=== PATIENT | female | born 1990 | race American Indian/Alaskan Native ===

== ENCOUNTER 2018-03-09 09:34 | Inpatient (IN) | payer MEDICAID ==
--- NOTE | 2018-03-08 17:07 | History and Physical Report ---
History of Present Illness Date of examination: 03/09/18 Chief complaint: Scheduled section History of present illness: Pt is a 27 year old -[place] female DAVID 03/12/18 by 39w4d who presents for scheduled section secondary to breech presentation. She reports irregular contractions and denies vaginal bleeding and leakage of fluid. She has had care at [facility] since 23 wks complicated by late entry to care, chronic hepatitis B carrier, genital herpes without lesion or prodrome, and GBS positive status. Past History Past Medical History: no pertinent history Past Surgical History: no surgical history CAD DRAFTER History: hepatitis C, herpes Family/Genetic History: diabetes, hypertension Social history: no significant social history - Obstetrical History Expected Date of Delivery: 03/12/18 Actual Gestation: 39 Week(s) 3 Day(s) : 3 Para: 2 Hx # Term Pregnancies: 2 Number of Pregnancies: 0 Spontaneous Abortions: 0 Induced : 0 Number of Living Children: 2 Review of Systems All systems: negative - Physical Exam Breasts: Positive: deferred Cardiovascular: Regular rate Lungs: Positive: Clear to auscultation Abdomen: Positive: soft (GRAVID ) Uterus: Positive: enlarged (GRAVID ) Extremities: Positive: normal - Obstetrical FHR: auscultation normal Uterine Contraction Monitor Mode: External Uterine Contraction Pattern: Irregular Uterine Tone Measurement Phase: Resting Results All other labs normal. Assessment and Plan A: IUP at 39w4d Malpresentation of fetus Genital Herpes Chronic Hepatitis B Carrier GBS Positive P: Admit to labor and delivery Confirmatory Ultrasound Proceed with low transverse section
[2018-03-09] MEDS ORDERED: REGLAN IV NR (10:00)
[2018-03-09] MEDS ORDERED: PEPCID IV NR (10:00)
[2018-03-09] MEDS ORDERED: PITOCin/NS 20 UNIT/1000ML DRIP 20 UNITS/1,000 ML BAG IV SCH ×2 (10:00→21:34)
[2018-03-09] MEDS ORDERED: BICITRA PO NR (10:00)
[2018-03-09] MEDS: LACTATED RINGERS 1,000 ML IV SCH ×3 (10:20→12:53)
[2018-03-09 10:43] LABS: Basophils % (Auto) 0.4 % (0.0-1.8); Eosinophils # (Auto) 0.1 K/mm3 (0.0-0.4); Eosinophils % (Auto) 1.4 % (0.0-4.3); Hematocrit 34.4 % (30.3-42.9); Hemoglobin 11.6 gm/dl (10.1-14.3); Lymphocytes # (Auto) 1.4 K/mm3 (1.2-5.4); Lymphocytes % (Auto) 19.6 % (13.4-35.0); Mean Corpuscular HGB Conc 34 % (30-34); Mean Corpuscular Hemoglobin 30 pg (28-32); Mean Corpuscular Volume 88 fl (79-97); Monocytes # (Auto) 0.6 K/mm3 (0.0-0.8); Monocytes % (Auto) 7.8 % (0.0-7.3); Platelet Count 189 K/mm3 (140-440); Red Blood Count 3.91 M/mm3 (3.65-5.03); Red Cell Distribution Width 15.3 % (13.2-15.2)
[2018-03-09] MEDS ORDERED: ZOFRAN ONE (10:46)
[2018-03-09] MEDS ORDERED: ASTRAMORPH PF 10MG/10ML ONE ×2 (10:49→17:31)
[2018-03-09] MEDS ORDERED: SUBLIMAZE ONE (10:49)
[2018-03-09] MEDS ORDERED: ZOFRAN IV PRN ×2 (11:01→21:24)
[2018-03-09] MEDS ORDERED: NARCAN 0.4 MG/1 ML IV PRN ×2 (11:01→21:24)
[2018-03-09] MEDS ORDERED: BENADRYL IV PRN (11:01)
[2018-03-09] MEDS ORDERED: NUBAIN IV PRN (11:01)
[2018-03-09] MEDS ORDERED: DILAUDID IV PRN (11:01)
--- NOTE | 2018-03-09 11:07 | Anesthesia Consultation ---
Anesthesia Consult and Med Hx Date of service: 03/09/18 - Airway Anesthetic Teeth Evaluation: Good ROM Head & Neck: Adequate Mental/Hyoid Distance: Adequate Mallampati Class: Class II Intubation Access Assessment: Good - Pre-Operative Health Status ASA Pre-Surgery Classification: ASA2 Proposed Anesthetic Plan: Epidural, Spinal - Pre-Anesthesia Comment Pre-Anesthesia Comments: 27yo femal, hx hep b carrier, herpes, no active lesion - Pulmonary Hx Smoking: No - Cardiovascular System Hx Hypertension: No - Central Nervous System Hx Neuromuscular Disorder: No - Gastrointestinal Hx Ulcer: No - Endocrine Hx Renal Disease: No - Hematic Hx Anemia: No - Other Systems Hx Alcohol Use: No
[2018-03-09] MEDS ORDERED: ANCEF/STERILE WATER 2 GM/20 ML IV NR (12:00)
[2018-03-09] MEDS ORDERED: SODIUM CHLORIDE FLUSH SYRINGE 10 ML IV NR (12:00)
--- NOTE | 2018-03-09 14:43 | Ultrasound Report ---
LIMITED OB ULTRASOUND: Presentation. Gestation: [place] Position: Breech Heart Rate: 138 BPM Estimated gestational age is 39 weeks 4 days.
[2018-03-09] MEDS ORDERED: NACL 0.9% IR ONE (16:20)
[2018-03-09] MEDS ORDERED: WATER FOR IRRIG STERILE IR ONE (16:20)
[2018-03-09] MEDS ORDERED: NEO SYNEPHRINE/NS Syringe(OR USE) IV ONE (16:39)
--- NOTE | 2018-03-09 17:23 | Procedure Note ---
OB Delivery Note - Delivery Date of Delivery: 03/09/18 Surgeon: ELI RENTERIA Estimated blood loss: other (700 mL) - Section Preop diagnosis: breech Postop diagnosis: same section procedure: section, primary low transverse Disposition: PACU Complications: none Narrative: Please see operative report. - A at 1 minute: 8 at 5 minutes: 9 Gender: Female (3375g (7lb 7oz) @ 1642 pm)
--- NOTE | 2018-03-09 17:28 | Operative Report ---
Operative Report Operative Report: Date of procedure: March 09, 2018 Preoperative diagnosis: 1) IUP at 39w4d 2) Malpresentation- Breech Postoperative diagnosis: Same 3) Terminal meconium Procedure:Primary low transverse section Surgeon: Kelly Rain M.D. Anesthesia: Spinal-epidural Findings: 1) Viable female , Apgars 8 and 9, weight 3375 g, (7 lb 7 oz) in incomplete breech presentation 2) Normal-appearing uterus ovaries and tubes Estimated blood loss: 700 mL IV fluids:1000 mL Urine output:250 mL, clear at the end of the procedure Drains: [place] to gravity Specimens: None Complications: None. Counts correct x 3 Disposition: Stable to PACU Indication for procedure: Pt is a 27 year old at 39w4d who presents for primary cesareans secondary to breech presentation. Operation in detail: After the risks, benefits, alternatives and complications were explained to the patient she gave informed consent for the procedure. She was subsequently taken to the operating room where spinal-epidural anesthesia was noted to be adequate. She was subsequently placed in the dorsal supine position with leftward tilt and prepped and draped in a normal sterile fashion. heart tones were noted to be in the 150s prior to incision. A timeout was performed. A Pfannenstiel skin incision was made with the knife and carried down to the layer of the fascia with the Bovie. The fascia was incised in the midline and the fascial incision was extended bilaterally with the Bovie. Attention was then turned to the superior aspect of the incision which was grasped with two Kochers, tented up, and dissected off the rectus muscles. Attention was then turned to the inferior aspect of the incision which was grasped with two Kochers , tented up and dissected off the rectus muscles. The rectus muscles were then in the midline. The peritoneum was then entered bluntly. The peritoneal incision was extended with good visualization of the bladder. The peritoneal incision was then stretched. An Ming self-retaining retractor was placed for visualization. The bladder blade was placed. The vesicouterine peritoneum was grasped with smooth pickups and incised with Metzenbaum scissors. Metzenbaum scissors were used to extend the incision bilaterally. The bladder flap was then created digitally and the bladder blade was replaced. A transverse incision was made in the lower uterine segment with a knife and extended bilaterally with the bandage scissors. The buttocks were covered with a moist towel and were delivered, followed by each of the legs , torsoe, arms and finally head. Terminal meconium. was bulb suctioned at delivery. The cord was clamped and cut and the was handed to NICU staff in attendance. Cord blood was collected. The placenta was then delivered manually. The uterus was then exteriorized and cleared of all clots and debris. The hysterotomy was then reapproximated with 0 Vicryl in a running locked fashion. A second layer of the same suture was used in imbricating fashion. The hysterotomy was inspected and hemostasis was noted. The Ming self-retaining retractor was removed. The gutters were irrigated and cleared of all clots and debris. The hysterotomy was again inspected and noted to be hemostatic. Surgicel was placed over the hysterotomy. The peritoneum was reapproximated with 2-0 Vicryl in a running fashion incorporating the rectus muscles. The fascia was reapproximated with 0 Vicryl in a running fashion. The subcutaneous tissue was reapproximated with 3-0 Vicryl in a running fashion. The skin was reapproximated with 4-0 Vicryl in a subcuticular fashion. The incision was then covered with steri strips and a pressure dressing. The procedure was then ended. The patient tolerated the procedure well and was taken to the PACU in stable condition. All instrument, lap, and needle counts were correct 3.
[2018-03-09] MEDS ORDERED: SODIUM CHLORIDE FLUSH SYRINGE 10 ML IV SCH (21:24)
[2018-03-09] MEDS ORDERED: TUCKS PAD TP PRN (21:24)
[2018-03-09] MEDS ORDERED: D5LR 1,000 ML IV SCH (21:24)
[2018-03-09] MEDS ORDERED: LANSINOH TP PRN (21:24)
[2018-03-09] MEDS ORDERED: MYLICON PO PRN (21:24)
[2018-03-09] MEDS ORDERED: PERCOCET 5/325 PO PRN (21:24)
[2018-03-09] MEDS ORDERED: TYLENOL PO PRN (21:24)
[2018-03-09] MEDS ORDERED: MOTRIN PO PRN (21:24)
[2018-03-09] MEDS ORDERED: TORADOL IV PRN (21:35)
[2018-03-10] MEDS: ANCEF/NS 1 GM/50 ML 1 GM/50 ML BAG IV SCH ×2 (00:08→07:54)
[2018-03-10] MEDS: MILK OF MAGNESIA PO SCH ×4 (00:08→21:40)
[2018-03-10 05:53] LABS: Hemoglobin 11.1 gm/dl (10.1-14.3)
[2018-03-10] MEDS ORDERED: BOOSTRIX IM ONE (06:00)
[2018-03-10] MEDS ORDERED: FEOSOL PO SCH (10:00)
[2018-03-10] MEDS ORDERED: M-M-R II VACCINE SUB-Q ONE (17:31)
[2018-03-11] MEDS: MILK OF MAGNESIA PO SCH (05:34)
--- NOTE | 2018-03-11 09:39 | Progress Note ---
Assessment and Plan Patient is POD 2 s/p ltcs. Patient doing well. Would like to be discharged today. Subjective - Subjective Date of service: 03/11/18 Interval history: Patient has no complaints Patient reports: appetite normal, voiding normally, ambulating normally [place]: doing well Objective - Vital Signs Latest vital signs: Vital Signs Temp Pulse Resp BP BP Pulse Ox 03/11/18 09:18 97.9 F 89 18 115/68 03/11/18 08:37 88 100 03/11/18 06:20 18 03/11/18 05:45 18 03/10/18 17:16 98.4 F 96 H 20 109/63 99 03/10/18 15:39 98.1 F 91 H 20 117/63 100 03/10/18 11:58 98.9 F 83 18 123/78 100 Intake and Output 03/10/18 03/11/18 03/11/18 22:59 06:59 14:59 Intake Total 720 360 Output Total 800 Balance -80 360 Intake: Oral 480 Intake, Free Water 240 360 Output: Urine 800 Void 800 Other: Total, Intake Amount 240 Total, Output Amount 800 # Voids Void 1 1 # Bowel Movements 0 - Exam Breasts: Present: deferred Cardiovascular: Present: Regular rate, Normal S1, Normal S2 Lungs: Present: Clear to auscultation, Normal air movement Abdomen: Present: normal appearance, soft Uterus: Present: normal, firm Extremities: Present: normal Incision: Present: normal, dry, dressed
--- NOTE | 2018-03-11 10:29 | Discharge Summary ---
Providers - Providers Date of Admission: 03/09/18 09:34 Date of discharge: 03/11/18 Attending physician: ELI RENTERIA 03/09/18 21:24 Consult to Portrait Consultant [CONS] Routine Reason For Exam: Primary care physician: ELI RENTERIA Hospitalization Reason for admission: section Delivery: Procedure: primary low transverse Episiotomy: none Incision: normal, dry, intact complications: none Discharge diagnosis: IUP at term delivered baby: female Condition at discharge: Good Disposition: DC-01 TO HOME OR SELFCARE Plan - Discharge Medications Prescriptions: Ferrous Sulfate [Feosol 325 MG tab] 325 mg PO BID #60 tablet Ibuprofen [Motrin] 800 mg PO Q8HR PRN #30 tablet PRN Reason: Pain, Moderate (4-6) oxyCODONE /ACETAMINOPHEN [Percocet 5/325] 1 tab PO Q6HR PRN #40 tablet PRN Reason: Pain - Provider Discharge Summary Activity: routine, no sex for 6 weeks, no heavy lifting 4 weeks, no strenuous exercise Diet: routine Instructions: routine Additional instructions: [] Smoking cessation referral if applicable(refer to patient education folder for contact #) [] Refer to [facility] Booklet Call your doctor immediately for: * Fever > 100.5 * Heavy vaginal bleeding ( >1 pad per hour) * Severe persistent headache * Shortness of breath * Reddened, hot, painful area to leg or breast * Drainage or odor from incision. * Keep incision clean and dry at all times and follow doctor's instructions regarding bathing/showering - Follow up plan Follow up: ELI RENTERIA MD [Primary Care Provider] - 14 Days
[2018-03-11] MEDS ORDERED: AFLURIA QUAD 2018-2019 SYRINGE IM ONE (12:00)
[2018-03-11 17:56] VITALS: BP 112/69
== END 2018-03-11 18:00 | disposition home or self-care (01) | DRG 765 ==
LOC: APU 09:34 → OB 19:05
PROVIDERS: ADMIT Obstetrics & Gynecology; ATTEND Obstetrics & Gynecology
PROC: 10D00Z1 Extraction of Products of Conception, Low, Open Approach (ICD-10-PCS; principal; 2018-03-09)
PROC: 3E0234Z Introduction of Serum, Toxoid and Vaccine into Muscle, Percutaneous Approach (ICD-10-PCS; 2018-03-10)
DX: O32.8XX0 Maternal care for other malpresentation of fetus, not applicable or unspecified (principal); O98.42 Viral hepatitis complicating childbirth; B18.1 Chronic viral hepatitis B without delta-agent; O98.32 Other infections with a predominantly sexual mode of transmission complicating childbirth; O99.824 Streptococcus B carrier state complicating childbirth; A60.00 Herpesviral infection of urogenital system, unspecified; O77.0 Labor and delivery complicated by meconium in amniotic fluid; Z3A.39 39 weeks gestation of pregnancy; Z37.0 Single live birth; Z23 Encounter for immunization
CPT/HCPCS: 36415; 76815; 85014; 85018; 85025; 86850; 86900; 86901; 90471; 90686; 90715; G0008; J0690; J1170; J1885; J2274; J2370; J2405; J2590; J2765; J3010; J7120; J7121